=== PATIENT | female | born 1960 | race Caucasian/White ===

== ENCOUNTER 2017-06-15 20:30 | Emergency (ER) | payer OTHER ==
[~2017-06-15] VITALS: Ht 154.9 cm; Wt 105.1 kg
[~2017-06-15 20:30] MED LIST: HYDR-3533 PO; LEVO.025 PO; TAMS0.4C67 PO; ZOFR4TAB3 SL
[2017-06-15 20:39] VITALS: BP 219/98; PULSE 73; TEMP 97.3; O2SAT 99
[2017-06-15] MEDS ORDERED: KETOROLAC TROMETHAMINE 30 MG/ML (IVP) VIAL IV PUSH ONE (21:00)
[2017-06-15] MEDS ORDERED: ONDANSETRON HCL 4 MG/2 ML VIAL IV PUSH ONE (21:00)
[2017-06-15] MEDS ORDERED: HYDROmorphone HCL PF 2 MG/ML VIAL IV PUSH ONE (21:00)
[2017-06-15] MEDS ORDERED: SODIUM CHLORIDE 0.9% FLUSH 10 ML FLUSH IVF PRN (21:00)
--- NOTE | 2017-06-15 21:01 | PD ---
HPI Chief Complaint: Abdominal Pain Time Seen by Provider: 20:49 Travel History International Travel<30 days: No Contact w/Intl Traveler<30days: No Traveled to known affect area: No History of Present Illness HPI 56-year-old female presents to the emergency department by private transportation for severe left flank and left lower quadrant abdominal pain since 3:15 PM today. Patient has had prior history of kidney stones but states pain is more severe today. Patient did take your call and drink plenty of water but has had vomiting. Patient rates pain as severe and unremitting. No report of fever chills dysuria frequency urgency or hematuria. Patient has history of chronic back pain had epidural injection approximately a week ago does not report any pain in this area has severe arthritis but does not report any lower extremity numbness tingling weakness saddle anesthesia or bladder or bowel dysfunction. Patient is unable to identify exacerbating or alleviating factors. PFSH Past Medical History Narrative Medical Kidney stones hypothyroidism arthritis appendectomy hysterectomy; no tobacco use ; nursing notes reviewed ?: Not Past Surgical History Appendectomy: Yes Hysterectomy: Yes Social History Alcohol Use: No Tobacco Use: No Substance Use: No Allergies-Medications (Allergen,Severity, Reaction): Coded Allergies: morphine (Unverified Allergy, Severe, NAUSEA, VOMITING, 06/15/17) Reported Meds & Prescriptions Reported Meds & Active Scripts Active Reported Meloxicam 7.5 Mg Tab 7.5 Mg PO DAILY PRN Hydrocodone-Acetaminophen 5-325 mg Tab 1 Tab PO Q4H PRN Liothyronine (Liothyronine Sodium) 5 Mcg Tab 10 Mcg PO TID Review of Systems Except as stated in HPI: all other systems reviewed are Neg General / Constitutional: No: Fever, Chills HENT: No: Congestion Cardiovascular: No: Chest Pain or Discomfort Respiratory: No: Shortness of Breath Gastrointestinal: Positive: Nausea, Vomiting, Abdominal Pain (LLQ) Genitourinary: Positive: Flank Pain (left), No: Urgency, Frequency, Dysuria, Hematuria Musculoskeletal: No: Myalgias, Arthralgias Skin: No Rash Neurologic: No: Weakness Psychiatric: Positive: Anxiety Hematologic/Lymphatic: No: Lymph Node Enlargement Physical Exam Narrative GENERAL: Well-developed well-nourished morbidly obese female in obvious discomfort no respiratory distress SKIN: Warm and dry. HEAD: Normocephalic. EYES: No scleral icterus. No injection or drainage. NECK: Supple, trachea midline. No JVD or lymphadenopathy. CARDIOVASCULAR: Regular rate and rhythm without murmurs, gallops, or rubs. RESPIRATORY: Breath sounds equal bilaterally. No accessory muscle use. GASTROINTESTINAL: Abdomen soft, left lower quadrant without guarding or rebound , nondistended. MUSCULOSKELETAL: No cyanosis, or edema. BACK: Nontender without obvious deformity. Left side CVA tenderness. Data Data Last Documented VS Vital Signs Date Time Temp Pulse Resp B/P (MAP) Pulse Ox O2 Delivery O2 Flow Rate FiO2 06/15/17 21:33 68 16 118/84 (95) 94 Room Air 06/15/17 20:39 97.3 Orders Orders Complete Blood Count With Diff (06/15/17 20:49) Basic Metabolic Panel (Bmp) (06/15/17 20:49) Urinalysis - C+S If Indicated (06/15/17 20:49) Ct Abd/Pel W/O Iv Contrast (06/15/17 20:49) Ecg Monitoring (06/15/17 20:49) Iv Access Insert/Monitor (06/15/17 20:49) Ketorolac Inj (Toradol Inj) (06/15/17 21:00) Ondansetron Inj (Zofran Inj) (06/15/17 21:00) Sodium Chloride 0.9% Flush (Ns Flush) (06/15/17 21:00) Hydromorphone Pf Inj (Dilaudid Pf Inj) (06/15/17 21:00) Urine Culture (06/15/17 20:50) Sodium Chlor 0.9% 1000 Ml Inj (Ns 1000 M (06/15/17 21:45) Ceftriaxone Inj (Rocephin Inj) (06/15/17 21:45) Labs Laboratory Tests Test 06/15/17 20:50 White Blood Count 12.8 TH/MM3 Red Blood Count 4.72 MIL/MM3 Hemoglobin 13.0 GM/DL Hematocrit 39.3 % Mean Corpuscular Volume 83.3 FL Mean Corpuscular Hemoglobin 27.6 PG Mean Corpuscular Hemoglobin Concent 33.2 % Red Cell Distribution Width 13.9 % Platelet Count 410 TH/MM3 Mean Platelet Volume 7.9 FL Neutrophils (%) (Auto) 77.2 % Lymphocytes (%) (Auto) 14.6 % Monocytes (%) (Auto) 5.9 % Eosinophils (%) (Auto) 0.1 % Basophils (%) (Auto) 2.2 % Neutrophils # (Auto) 9.8 TH/MM3 Lymphocytes # (Auto) 1.9 TH/MM3 Monocytes # (Auto) 0.8 TH/MM3 Eosinophils # (Auto) 0.0 TH/MM3 Basophils # (Auto) 0.3 TH/MM3 CBC Comment DIFF FINAL Differential Comment Urine Collection Type CLEAN CATCH Urine Color ORANGE Urine Turbidity SL CLOUDY Urine pH 5.5 Urine Specific [place] GREATER/EQUAL 1.030 Urine Protein 100 mg/dL Urine Glucose (UA) 250 mg/dL Urine Ketones NEG mg/dL Urine Occult Blood LARGE Urine Nitrite POS Urine Bilirubin NEG Urine Urobilinogen 1.0 MG/DL Urine Leukocyte Esterase NEG Urine RBC 4-9 /hpf Urine WBC 3-5 /hpf Urine WBC Clumps OCC Urine Squamous Epithelial Cells 0-5 /hpf Urine Bacteria OCC /hpf Urine Mucus OCC /lpf Microscopic Urinalysis Comment CULTURE INDICATED Blood Urea Nitrogen 26 MG/DL Creatinine 1.10 MG/DL Random Glucose 119 MG/DL Calcium Level 8.9 MG/DL Sodium Level 138 MEQ/L Potassium Level 3.4 MEQ/L Chloride Level 105 MEQ/L Carbon Dioxide Level 25.0 MEQ/L Anion Gap 8 MEQ/L Estimat Glomerular Filtration Rate 51 ML/MIN [facility] Medical Decision Making Medical Screen Exam Complete: Yes Emergency Medical Condition: Yes Medical Record Reviewed: Yes Interpretation(s) Urinalysis: Positive nitrites positive white blood cells, white blood cells bacteria and cultures indicated Vital Signs Date Time Temp Pulse Resp B/P (MAP) Pulse Ox O2 Delivery O2 Flow Rate FiO2 06/15/17 21:33 68 16 118/84 (95) 94 Room Air 06/15/17 21:09 73 16 97 Room Air 06/15/17 20:39 97.3 73 219/98 (138) 99 CBC & BMP Diagram 06/15/17 20:[address] renal protocol: CONCLUSION: 1. There is left perinephric and periureteric inflammation with mild asymmetric distention of the left collecting system and ureter. No left ureteral stone is seen. There is a 2 mm density in the urinary bladder which may represent a recently passed stone. This is most likely the cause for the left-sided kidney inflammation. Less likely, pyelonephritis could give this appearance. 2. No other acute abnormality is identified. Marcello Arreaga MD on June 15, 2017 at 21:33 Board Certified Radiologist. This report was verified electronically. Differential Diagnosis Flank pain, obstructive uropathy/nephrolithiasis, pyelonephritis, diverticulitis , ruptured ovarian cyst; unlikely epidural abscess, cauda equina, aaa Narrative Course IV access obtained specimens collected and sent for resulting patient administered Dilaudid 0.5 mg IV and Zofran 4 mg IV urine specimen collected and CT kidney stone protocol ordered At 9 PM patient notes symptom improvement CBC with automated differential remarkable for white count of 12,800 mild left shift; metabolic panel remarkable renal insufficiency BUN 26 creatinine 1.1; urinalysis abnormal with large blood positive nitrites clumped white blood cells and bacteria culture indicated patient given dose of Rocephin [address] kidney stone protocol pending At 9:45 PM patient informed of imaging results urine results and is stable for outpatient management. Patient given bolus of normal saline. Patient is to follow-up with her primary care provider and her urologist Diagnosis Primary Impression: Renal colic on left side Additional Impressions: Hydroureteronephrosis UTI (urinary tract infection) Referrals: Primary Care Physician 1 day Urologist call for appointment Patient Instructions: Narcotic given in the ED, General Instructions Additional Instructions: Increase fluid hydration Strain urine Complete course of antibiotic as prescribed Take medication as prescribed as needed for nausea and/or vomiting Follow-up with primary care provider and urologist call to schedule appointment Take acetaminophen/Tylenol every 4-6 hours as needed for fever 100.4F or greater Take ibuprofen/Advil/Motrin 600 mg every 6-8 hours as needed for pain associated with inflammation or greater than 5/10 intensity May take pain medication as prescribed as needed Return to the emergency department for any concerns or change in condition Med/Other Pt SpecificInfo: Prescription(s) given Scripts Oxycodone-Acetaminophen (Percocet) 5-325 mg Tab 1 TAB PO Q6H Y for PAIN, #5 TAB 0 Refills Prov: Patrizia Amin MD 06/15/17 Promethazine (Phenergan) 25 Mg Tablet 25 MG PO Q6H Y for NAUSEA OR VOMITING, #10 TAB 0 Refills Prov: Patrizia Amin MD 06/15/17 Ciprofloxacin (Cipro) 500 Mg Tab 500 MG PO BID for Infection for 7 Days, #14 TAB 0 Refills Prov: Patrizia Amin MD 06/15/17 Disposition: 01 DISCHARGE HOME Condition: Stable Patrizia Amin MD Jun 15, 2017 21:01
[2017-06-15 21:09] VITALS: PULSE 73; RESP 16; O2SAT 97
[2017-06-15 21:10] LABS: AUTOMATED NEUTROPHIL # 9.8 TH/MM3 (1.8-7.7); BASOPHIL # 0.3 TH/MM3 (0-0.2); BASOPHIL % 2.2 % (0.0-2.0); EOSINOPHIL % 0.1 % (0.0-4.0); HEMATOCRIT 39.3 % (35.0-46.0); LYMPH % 14.6 % (9.0-44.0); LYMPHOCYTE # 1.9 TH/MM3 (1.0-4.8); MEAN CELL VOLUME 83.3 FL (80.0-100.0); MEAN CORPUSCULAR HEMOGLOBIN 27.6 PG (27.0-34.0); MEAN CORPUSCULAR HGB CONC 33.2 % (32.0-36.0); MEAN PLATELET VOLUME 7.9 FL (7.0-11.0); MONO % 5.9 % (0.0-8.0); MONOCYTE # 0.8 TH/MM3 (0-0.9); NEUT % 77.2 % (16.0-70.0); PLATELET COUNT 410 TH/MM3 (150-450); RED BLOOD COUNT 4.72 MIL/MM3 (4.00-5.30); RED CELL DISTRIBUTION WIDTH 13.9 % (11.6-17.2); WHITE BLOOD COUNT 12.8 TH/MM3 (4.0-11.0)
[2017-06-15 21:14] LABS: CALCIUM 8.9 MG/DL (8.5-10.1)
[2017-06-15 21:16] LABS: BILIRUBIN, URINE NEG (NEG); BLOOD, URINE LARGE (NEG); GLUCOSE,URINE 250 mg/dL (NEG); KETONE, URINE NEG (NEG); NITRITE,URINE POS (NEG); PH, URINE 5.5 (5.0-8.5); URINE LEUKOCYTE ESTERASE NEG (NEG)
[2017-06-15 21:18] LABS: CREATININE 1.1 MG/DL (0.50-1.00)
[2017-06-15 21:23] LABS: URINE COLOR ORANGE (YELLW/STRAW)
[2017-06-15 21:26] LABS: MUCUS URINE OCC /lpf (OCC)
[2017-06-15 21:27] LABS: SQUAMOUS EPITHELIAL CELL URINE 0-5 /hpf (0-5); WHITE BLOOD CELL CLUMPS OCC
[2017-06-15 21:28] LABS: BACTERIA, URINE OCC /hpf
[2017-06-15 21:33] VITALS: BP 118/84; PULSE 68; RESP 16; O2SAT 94
[2017-06-15] MEDS ORDERED: HYDR-3516 PO (21:36)
[2017-06-15] MEDS ORDERED: LIOT5TAB3 PO (21:36)
[2017-06-15] MEDS ORDERED: MELO7.5T27 PO (21:36)
--- NOTE | 2017-06-15 21:40 | RADRPT ---
EXAM DATE/TIME: 06/15/2017 21:20 [facility] COMPARISON: CT ABDOMEN & PELVIS W/O CONTRAST, February 18, 2015, 7:54. INDICATIONS : Left lower back pain. ORAL CONTRAST: No oral contrast ingested. RADIATION DOSE: 20.84 CTDIvol (mGy) MEDICAL HISTORY : None SURGICAL HISTORY : Appendectomy. Hysterectomy. ENCOUNTER: Initial ACUITY: 1 day PAIN SCALE: 10/10 LOCATION: Left lower back TECHNIQUE: Volumetric scanning of the abdomen and pelvis was performed. Using automated exposure control and ad justment of the mA and/or kV according to patient size, radiation dose was kept as low as reasonably achievable to obtain optimal diagnostic quality images. DICOM format image data is available electro nically for review and comparison. FINDINGS: LOWER LUNGS: The visualized lower lungs are clear. LIVER: Homogeneous density without lesion. There is no dilation of the biliary tree. No calcified gallston es. SPLEEN: Normal size without lesion. PANCREAS: Within normal limits. KIDNEYS: Left kidney is slightly larger than the right and demonstrates perinephric inflammation. There is mil d asymmetric distention of the left collecting system and left ureter compared to the right. There is also left periureteric stranding. No left ureteral stone is visualized. No right renal stone is pres ent. ADRENAL GLANDS: Within normal limits. VASCULAR: There is no aortic aneurysm. There is mild atherosclerotic disease. BOWEL/MESENTERY: The stomach, small bowel, and colon demonstrate no acute abnormality. There is no free intraperitone al air or fluid. ABDOMINAL WALL: Within normal limits. RETROPERITONEUM: There is no lymphadenopathy. BLADDER: No wall thickening or mass. There is a 2 mm stone in the dependent urinary bladder. REPRODUCTIVE: Uterus is absent. No adnexal abnormality is seen. INGUINAL: There is no lymphadenopathy or hernia. MUSCULOSKELETAL: There is severe osteoarthritis at the hip joints bilaterally with areas of subchondral cystic change. CONCLUSION: 1. There is left perinephric and periureteric inflammation with mild asymmetric distention of the lef t collecting system and ureter. No left ureteral stone is seen. There is a 2 mm density in the urinar y bladder which may represent a recently passed stone. This is most likely the cause for the left-wild ed kidney inflammation. Less likely, pyelonephritis could give this appearance. 2. No other acute abnormality is identified. Marcello Arreaga MD on June 15, 2017 at 21:33 Board Certified Radiologist. This report was verified electronically.
[2017-06-15] MEDS ORDERED: SODIUM CHLOR 0.9% 1000 ML INJ 1,000 ML IV ONE (21:45)
[2017-06-15] MEDS ORDERED: cefTRIAXone INJ 1,000 MG in SODIUM CHLORIDE 0.9% INJ 100 ML IV ONE (21:45)
[2017-06-15] MEDS ORDERED: PROM25TA10 PO (21:48)
[2017-06-15] MEDS ORDERED: CIPR-9 PO (21:48)
[2017-06-15] MEDS ORDERED: PERC5TAB12 PO (21:48)
[2017-06-15 22:47] VITALS: BP 141/79
== END 2017-06-15 22:49 | disposition home or self-care (01) ==
LOC: PHED 20:30
DX: N23 Unspecified renal colic (principal); N13.30 Unspecified hydronephrosis; N39.0 Urinary tract infection, site not specified; B96.4 Proteus (mirabilis) (morganii) as the cause of diseases classified elsewhere; E66.01 Morbid (severe) obesity due to excess calories; E03.9 Hypothyroidism, unspecified; M19.90 Unspecified osteoarthritis, unspecified site; Z88.5 Allergy status to narcotic agent; Z79.899 Other long term (current) drug therapy
CPT/HCPCS: 74176; 80048; 81001; 85025; 87077; 87086; 87186; 96361; 96365; 99284; J0696; J1170; J1885; J2405; J7030